=== PATIENT | female | born 1995 | race Caucasian/White ===

== ENCOUNTER 2017-07-27 10:41 | Outpatient (CLI) | payer BC ==
[2017-07-27] MEDS: LACTATED RINGER'S 500 ML IV ×2 (11:17→11:18)
[2017-07-27 12:07] LABS: ADD MAN DIFF? NO
[2017-07-27 12:09] LABS: BASOPHILS % 0.3 % (0.0-2.0); EOSINOPHILS # 0.4 10^3/ul (0.0-0.5); HEMATOCRIT 29.7 % (37.0-47.0); HEMOGLOBIN 10.2 g/dl (12.0-16.0); LYMPHOCYTES # 2.2 10^3/ul (0.8-2.9); LYMPHOCYTES % 17.9 % (18.0-55.0); MEAN CORPUSCULAR HEMOGLOBIN 31.6 pg (29.0-33.0); MEAN CORPUSCULAR HGB CONC 34.3 g/dl (32.0-37.0); MEAN PLATELET VOLUME 10.5 fl (7.4-10.4); MONOCYTE # 0.7 10^3/ul (0.3-0.9); MONOCYTES % 5.5 % (0.0-13.0); NEUTROPHIL # 8.9 10^3/ul (1.6-7.5); NEUTROPHILS % 72.7 % (30.0-74.0); PLATELET COUNT 241 10^3/UL (140-415); RED BLOOD COUNT 3.23 10^6/ul (4.20-5.40); RED CELL DISTRIBUTION WIDTH 11.8 % (11.5-14.5)
[2017-07-27 12:09] LABS: WHITE BLOOD COUNT 12.3 10^3/ul (4.8-10.8)
== END 2017-07-27 13:40 | disposition home or self-care (01) ==
LOC: OBT 10:41 → L-D 10:41 → OBT 13:40
DX: O26.892 Other specified pregnancy related conditions, second trimester (principal); R10.2 Pelvic and perineal pain; R05 Cough; Z3A.24 24 weeks gestation of pregnancy
CPT/HCPCS: 36415; 85025; 96360

== ENCOUNTER 2018-09-18 22:13 | Emergency (ER) | payer SELFPAY, BC | END 2018-09-19 01:50 | disposition left against medical advice (07) | LOC: FTE 22:13 | DX: Z53.21 Procedure and treatment not carried out due to patient leaving prior to being seen by health care provider (principal) ==